=== PATIENT | male | born 1965 ===

== ENCOUNTER 2021-06-08 03:58 | Inpatient (IN) ==
[2021-06-08] MEDS ORDERED: ALBUTEROL 2.5 MG/3 ML NEB RESP TX PRN (04:06)
[2021-06-08] MEDS ORDERED: ONDANSETRON 4 MG/2 ML VIAL IV PRN (04:06)
[2021-06-08] MEDS ORDERED: DEXTROSE 5% NACL 0.45% 1,000 ML IV SCH (06:00)
[2021-06-08] MEDS ORDERED: LABETALOL 20 MG/4 ML SYRINGE IV ONE (07:40)
[2021-06-08] MEDS: PANTOPRAZOLE 40 MG VIAL IV SCH (08:07)
[2021-06-08] MEDS ORDERED: GLUCAGON 1 MG VIAL IM PRN (08:15)
[2021-06-08] MEDS ORDERED: DEXTROSE 10% 250 ML BAG IV PRN (08:18)
[2021-06-08 08:42] LABS: Alanine Aminotransferase 16 U/L (16-61); Albumin 3.4 G/DL (3.4-5.0); Alkaline Phosphatase 111 U/L (45-117); Aspartate Amino Transferase 27 U/L (0-37); Bilirubin,Total < 0.39 MG/DL (0.20-1.00); Blood Urea Nitrogen 37 MG/DL (7-18); Calcium 8.4 MG/DL (8.5-10.1); Carbon Dioxide 23 MMOL/L (21-32); Chloride 106 MMOL/L (98-107); Estimated Glom Filtration Rate 28 ML/MIN; Glucose 295 MG/DL (74-106); Osmolality,Calculated 292.8 MOS/KG (273-304); Potassium 4.2 MMOL/L (3.5-5.1); Sodium 137 MMOL/L (136-145); Total Protein 7.1 G/DL (6.4-8.2)
[2021-06-08 08:48] LABS: Arterial Base Excess iSTAT -3 MMOL/L (-2.5-2.5); Arterial Bicarbonate iSTAT 25.8 MMOL/L (20-26); Arterial O2 Saturation iSTAT 100 % (95-100); Arterial PCO2 iSTAT 68 MM HG (35-48); Arterial PO2 iSTAT 329 MM HG (80-95); Arterial Total CO2 iSTAT 28 MMO/L (23-27); Arterial pH iSTAT 7.184 (7.35-7.45)
[2021-06-08 08:58] LABS: PT Patient Result 11.3 SECS (10.5-12.0)
[2021-06-08 09:16] LABS: Basophils # 0.1 10*3/uL (0.0-0.2); Basophils % 0.5 % (0.0-0.8); Eosinophils # 0.1 10*3/uL (0.0-0.87); Eosinophils % 0.3 % (0.00-10.9); Hematocrit 31.4 VOL% (42.0-52.0); Hemoglobin 8.7 GM/DL (14.0-18.0); Immature Granulocytes % 1.4 %; Immature Granulocytes Absolute 0.37 #; Lymphocytes % 7.7 % (21.2-54.2); Mean Corpuscular HGB Conc 27.7 GM/DL (32-36); Mean Corpuscular Volume 75.8 FL (87-102); Mean Platelet Volume 10.7 FL (9.6-12.0); Monocytes # 2.2 10*3/uL (0.11-0.8); Monocytes % 8.5 % (1.7-12.7); NRBC # 0.03 10*3/uL; Neutrophils % 81.6 % (38.7-73.9); Platelet Count 316 T/CUMM (130-400); Red Blood Count 4.14 MC/CUMM (3.8-5.5); Red Cell Distribution Width 17.9 % (9.3-17.3); White Blood Count 25.8 T/CUMM (4-12)
[2021-06-08] MEDS ORDERED: HEPARIN DRIP 25,000 UNITS/500 ML PREMIX IV SCH (09:30)
[2021-06-08] MEDS ORDERED: FUROSEMIDE 40 MG/4 ML VIAL IV ONE (09:31)
[2021-06-08 09:48] LABS: Glucose,Urine (UA) Negative (Negative); Ketones,Urine Negative (Negative); Mucus,Urine Occasional /LPF (Occasional); Protein,Urine >=300 mg/dL (Negative); RBC,Urine 7 /HPF (0-4); Squamous Epithelial Cell,Urine Occasional /HPF (0-10); Urine Appearance Clear (Clear); Urine Color Yellow (Yellow); Urine Specific Gravity >= 1.030 (1.001-1.035); Urine pH 5.5 (4.5-8.0)
[2021-06-08 09:49] LABS: Bilirubin,Urine Negative (Negative); Blood, Urine Moderate mg/dL (Negative); Nitrite,Urine Negative (Negative); Urine Urobilinogen 0.2 eU/dL (<2.0)
[2021-06-08 10:21] LABS: Barbiturates Screen,Urine Negative (Negative); Benzodiazepines Screen,Urine Positive (Negative); Cannabinoid Screen,Urine Negative (Negative); Opiate Screen,Urine Negative (Negative); Phencyclidine Screen,Urine Negative (Negative)
[2021-06-08] MEDS: methylPREDNISolone SOD SUC 40 MG/1 ML VIAL IV SCH ×2 (10:23→16:28)
[2021-06-08] MEDS: cefTRIAXone 1,000 MG in SODIUM CHLORIDE 0.9% 100 ML IV SCH (10:23)
[2021-06-08 10:33] LABS: Arterial Base Excess iSTAT -2 MMOL/L (-2.5-2.5); Arterial Bicarbonate iSTAT 24.7 MMOL/L (20-26); Arterial O2 Saturation iSTAT 99 % (95-100); Arterial PCO2 iSTAT 49 MM HG (35-48); Arterial PO2 iSTAT 158 MM HG (80-95); Arterial Total CO2 iSTAT 26 MMO/L (23-27); Arterial pH iSTAT 7.311 (7.35-7.45)
[2021-06-08] MEDS: AZITHROMYCIN INJ 500 MG in SODIUM CHLORIDE 0.9% 250 ML IV SCH (11:08)
[2021-06-08] MEDS ORDERED: INSULIN LISPRO 100 UNIT/ML SUBCUT SCH (12:00)
[2021-06-08] MEDS ORDERED: ASPIRIN EC 81 MG TABLET PO SCH (12:53)
[2021-06-08] MEDS ORDERED: METOPROLOL SUCCINATE XL 25 MG TABLET PO SCH (13:00)
[2021-06-08] MEDS: ALBUTEROL/IPRATROPIUM 3 ML NEB RESP TX SCH ×2 (13:05→19:50)
[2021-06-08 13:06] LABS: Arterial Base Excess iSTAT -1 MMOL/L (-2.5-2.5); Arterial Bicarbonate iSTAT 24.5 MMOL/L (20-26); Arterial O2 Saturation iSTAT 99 % (95-100); Arterial PCO2 iSTAT 43 MM HG (35-48); Arterial PO2 iSTAT 122 MM HG (80-95); Arterial Total CO2 iSTAT 26 MMO/L (23-27); Arterial pH iSTAT 7.362 (7.35-7.45)
[2021-06-08] MEDS: METOPROLOL TARTRATE 25 MG TABLET PO SCH ×2 (14:13→20:36)
[2021-06-08] MEDS: HEPARIN 5,000 UNIT/1 ML VIAL SUBCUT SCH ×2 (14:13→22:37)
[2021-06-08] MEDS ORDERED: PNEUMOCOCCAL VACCINE (23 VALENT) 0.5 ML VIAL IM ONE (17:28)
[2021-06-08] MEDS: hydrALAZINE 20 MG/1 ML VIAL IV PRN ×2 (18:29→23:40)
[2021-06-09] MEDS: methylPREDNISolone SOD SUC 40 MG/1 ML VIAL IV SCH ×4 (00:32→23:45)
[2021-06-09] MEDS: ALBUTEROL/IPRATROPIUM 3 ML NEB RESP TX SCH ×4 (00:40→20:00)
[2021-06-09 03:39] LABS: ABG Base Excess -1.6 MMOL/L (-2.5-2.5); ABG HCO3 23.1 MMOL/L (20-26); ABG Oxygen Saturation 97.9 % (95-100); ABG PCO2 41.4 MM HG (35-48); ABG PH 7.364 (7.35-7.45); ABG TCO2 22.2 MMOL/L (23-27)
[2021-06-09] MEDS: HEPARIN 5,000 UNIT/1 ML VIAL SUBCUT SCH ×3 (05:19→21:47)
[2021-06-09] MEDS: MIDAZOLAM 100 MG in SODIUM CHLORIDE 0.9% 80 ML IV PRN (05:25)
[2021-06-09 05:55] LABS: Basophils % 0.2 % (0.0-0.8); Hematocrit 27.9 VOL% (42.0-52.0); Immature Granulocytes % 0.6 %; Immature Granulocytes Absolute 0.08 #; Lymphocytes # 1.5 10*3/uL (1.4-4.0); Lymphocytes % 11.5 % (21.2-54.2); Mean Corpuscular HGB Conc 28.7 GM/DL (32-36); Mean Corpuscular Volume 72.3 FL (87-102); Mean Platelet Volume 9.6 FL (9.6-12.0); Monocytes # 1.2 10*3/uL (0.11-0.8); Monocytes % 9.1 % (1.7-12.7); Neutrophils % 78.6 % (38.7-73.9); Platelet Count 239 T/CUMM (130-400); Red Blood Count 3.86 MC/CUMM (3.8-5.5); White Blood Count 12.9 T/CUMM (4-12)
[2021-06-09 06:18] LABS: Hypochromia 1+; Microcytosis 1+
[2021-06-09 06:19] LABS: Anisocytosis 1+; Ovalocytes Slight; Platelet Estimate Normal; Polychromasia Slight
[2021-06-09 06:20] LABS: Alanine Aminotransferase 18 U/L (16-61); Albumin 3.5 G/DL (3.4-5.0); Alkaline Phosphatase 95 U/L (45-117); Aspartate Amino Transferase 31 U/L (0-37); Bilirubin,Total < 0.39 MG/DL (0.20-1.00); Blood Urea Nitrogen 46 MG/DL (7-18); Calcium 9.1 MG/DL (8.5-10.1); Carbon Dioxide 22 MMOL/L (21-32); Chloride 107 MMOL/L (98-107); Estimated Glom Filtration Rate 28 ML/MIN; Glucose 140 MG/DL (74-106); Osmolality,Calculated 288.7 MOS/KG (273-304); Potassium 4.3 MMOL/L (3.5-5.1); Sodium 138 MMOL/L (136-145); Total Protein 7.1 G/DL (6.4-8.2)
[2021-06-09 06:21] LABS: Risk Ratio 6.59
[2021-06-09 06:22] LABS: Ferritin 15.3 ng/mL (26-388)
[2021-06-09] MEDS: PANTOPRAZOLE 40 MG VIAL IV SCH (09:10)
[2021-06-09] MEDS: ASPIRIN CHEW 81 MG TABLET PO SCH (09:14)
[2021-06-09] MEDS: METOPROLOL TARTRATE 25 MG TABLET PO SCH ×2 (09:14→21:47)
[2021-06-09] MEDS ORDERED: FUROSEMIDE 40 MG/4 ML VIAL IV ONE (10:55)
[2021-06-09] MEDS: cefTRIAXone 1,000 MG in SODIUM CHLORIDE 0.9% 100 ML IV SCH (11:25)
[2021-06-09] MEDS: FERROUS SULFATE 325 MG TABLET PO SCH ×2 (11:52→21:46)
[2021-06-09] MEDS: AZITHROMYCIN INJ 500 MG in SODIUM CHLORIDE 0.9% 250 ML IV SCH (11:52)
[2021-06-10] MEDS: ALBUTEROL/IPRATROPIUM 3 ML NEB RESP TX SCH ×4 (01:05→19:02)
[2021-06-10 04:58] LABS: ABG Base Excess 0.3 MMOL/L (-2.5-2.5); ABG HCO3 24.7 MMOL/L (20-26); ABG Oxygen Saturation 98.4 % (95-100); ABG PCO2 44.3 MM HG (35-48); ABG TCO2 24.2 MMOL/L (23-27)
[2021-06-10] MEDS: HEPARIN 5,000 UNIT/1 ML VIAL SUBCUT SCH ×3 (05:34→21:32)
[2021-06-10] MEDS: MIDAZOLAM 100 MG in SODIUM CHLORIDE 0.9% 80 ML IV PRN (06:34)
[2021-06-10 06:57] LABS: Hematocrit 24.9 VOL% (42.0-52.0); Hemoglobin 7.2 GM/DL (14.0-18.0); Immature Granulocytes % 0.6 %; Immature Granulocytes Absolute 0.06 #; Lymphocytes # 0.7 10*3/uL (1.4-4.0); Lymphocytes % 6.3 % (21.2-54.2); Mean Corpuscular HGB Conc 28.9 GM/DL (32-36); Mean Corpuscular Volume 72.8 FL (87-102); Mean Platelet Volume 10.7 FL (9.6-12.0); Monocytes # 0.4 10*3/uL (0.11-0.8); Monocytes % 3.2 % (1.7-12.7); NRBC # 0.02 10*3/uL; Neutrophils % 89.9 % (38.7-73.9); Platelet Count 210 T/CUMM (130-400); Red Blood Count 3.42 MC/CUMM (3.8-5.5); White Blood Count 10.9 T/CUMM (4-12)
[2021-06-10 07:10] LABS: Hypochromia 1+; Microcytosis 1+; Ovalocytes Slight
[2021-06-10 07:11] LABS: Tear Drop Cells Slight
[2021-06-10 07:19] LABS: Calcium 9.6 MG/DL (8.5-10.1); Osmolality,Calculated 291.8 MOS/KG (273-304); Potassium 4.3 MMOL/L (3.5-5.1)
[2021-06-10] MEDS: FERROUS SULFATE 325 MG TABLET PO SCH ×2 (09:08→21:31)
[2021-06-10] MEDS: PANTOPRAZOLE 40 MG VIAL IV SCH (09:08)
[2021-06-10] MEDS: METOPROLOL TARTRATE 25 MG TABLET PO SCH ×2 (09:08→20:11)
[2021-06-10] MEDS: cefTRIAXone 1,000 MG in SODIUM CHLORIDE 0.9% 100 ML IV SCH (09:08)
[2021-06-10] MEDS: methylPREDNISolone SOD SUC 40 MG/1 ML VIAL IV SCH ×2 (09:08→16:28)
[2021-06-10] MEDS: ASPIRIN CHEW 81 MG TABLET PO SCH (09:08)
[2021-06-10] MEDS: AZITHROMYCIN INJ 500 MG in SODIUM CHLORIDE 0.9% 250 ML IV SCH (11:08)
[2021-06-10] MEDS: hydrALAZINE 20 MG/1 ML VIAL IV PRN ×2 (13:51→19:38)
[2021-06-10] MEDS: ACETAMINOPHEN 325 MG TABLET PO PRN (20:11)
[2021-06-11] MEDS: methylPREDNISolone SOD SUC 40 MG/1 ML VIAL IV SCH ×3 (01:04→16:03)
[2021-06-11] MEDS: ALBUTEROL/IPRATROPIUM 3 ML NEB RESP TX SCH ×4 (01:50→19:00)
[2021-06-11 02:56] LABS: ABG HCO3 25.3 MMOL/L (20-26); ABG Oxygen Saturation 98.4 % (95-100); ABG PCO2 43.5 MM HG (35-48); ABG PH 7.387 (7.35-7.45); ABG TCO2 24.6 MMOL/L (23-27)
[2021-06-11] MEDS: HEPARIN 5,000 UNIT/1 ML VIAL SUBCUT SCH ×3 (05:19→21:24)
[2021-06-11 05:40] LABS: Basophils % 0.1 % (0.0-0.8); Hematocrit 24.6 VOL% (42.0-52.0); Hemoglobin 7.1 GM/DL (14.0-18.0); Immature Granulocytes Absolute 0.18 #; Lymphocytes # 0.6 10*3/uL (1.4-4.0); Lymphocytes % 3.5 % (21.2-54.2); Mean Corpuscular HGB Conc 28.9 GM/DL (32-36); Mean Corpuscular Volume 73.7 FL (87-102); Mean Platelet Volume 10.6 FL (9.6-12.0); Monocytes # 0.5 10*3/uL (0.11-0.8); Monocytes % 2.6 % (1.7-12.7); NRBC # 0.03 10*3/uL; Neutrophils % 92.8 % (38.7-73.9); Platelet Count 238 T/CUMM (130-400); Red Blood Count 3.34 MC/CUMM (3.8-5.5); Red Cell Distribution Width 18.2 % (9.3-17.3); White Blood Count 17.6 T/CUMM (4-12)
[2021-06-11 06:00] LABS: Calcium 9.5 MG/DL (8.5-10.1); Osmolality,Calculated 300.5 MOS/KG (273-304); Potassium 4.7 MMOL/L (3.5-5.1)
[2021-06-11 06:03] LABS: Anisocytosis 1+; Hypochromia 1+; Lymphocytes 5 % (20-55); Microcytosis 1+; Polychromasia Slight; Target Cells Few; Total Cells Counted 100
[2021-06-11 06:04] LABS: Ovalocytes Slight; Platelet Estimate Normal
[2021-06-11] MEDS ORDERED: FUROSEMIDE 100 MG/10 ML VIAL IV ONE (08:07)
[2021-06-11] MEDS: FERROUS SULFATE 325 MG TABLET PO SCH ×2 (08:10→21:24)
[2021-06-11] MEDS: ASPIRIN CHEW 81 MG TABLET PO SCH (08:10)
[2021-06-11] MEDS: amLODIPine 5 MG TABLET PO SCH (08:11)
[2021-06-11] MEDS: PANTOPRAZOLE 40 MG VIAL IV SCH (08:12)
[2021-06-11] MEDS: DEXMEDETOMIDINE 200 MCG in SODIUM CHLORIDE 0.9% 48 ML IV PRN ×3 (08:30→19:25)
[2021-06-11] MEDS: METOPROLOL TARTRATE 50 MG TABLET PO SCH ×2 (09:41→21:24)
[2021-06-11] MEDS: cefTRIAXone 1,000 MG in SODIUM CHLORIDE 0.9% 100 ML IV SCH (09:47)
[2021-06-11] MEDS: AZITHROMYCIN INJ 500 MG in SODIUM CHLORIDE 0.9% 250 ML IV SCH (11:12)
[2021-06-11] MEDS ORDERED: INSULIN REGULAR 100 UNIT/ML SUBCUT SCH (12:00)
[2021-06-11 22:55] VITALS: BP 158/67
[2021-06-12] MEDS: methylPREDNISolone SOD SUC 40 MG/1 ML VIAL IV SCH ×3 (00:10→21:28)
[2021-06-12] MEDS: ALBUTEROL/IPRATROPIUM 3 ML NEB RESP TX SCH ×4 (01:00→19:37)
[2021-06-12] MEDS: DEXMEDETOMIDINE 200 MCG in SODIUM CHLORIDE 0.9% 48 ML IV PRN ×4 (03:23→20:08)
[2021-06-12 04:31] LABS: ABG Base Excess 3.9 MMOL/L (-2.5-2.5); ABG HCO3 27.9 MMOL/L (20-26); ABG Oxygen Saturation 98.5 % (95-100); ABG PCO2 38.6 MM HG (35-48); ABG PH 7.465 (7.35-7.45); ABG TCO2 25.4 MMOL/L (23-27)
[2021-06-12 05:40] LABS: Basophils % 0.2 % (0.0-0.8); Hematocrit 30.5 VOL% (42.0-52.0); Hemoglobin 9.3 GM/DL (14.0-18.0); Immature Granulocytes % 0.9 %; Immature Granulocytes Absolute 0.16 #; Lymphocytes # 0.8 10*3/uL (1.4-4.0); Lymphocytes % 4.4 % (21.2-54.2); Mean Corpuscular HGB Conc 30.5 GM/DL (32-36); Mean Corpuscular Volume 74.9 FL (87-102); Mean Platelet Volume 10.3 FL (9.6-12.0); Monocytes # 1.1 10*3/uL (0.11-0.8); Monocytes % 5.7 % (1.7-12.7); NRBC # 0.02 10*3/uL; Neutrophils % 88.8 % (38.7-73.9); Platelet Count 231 T/CUMM (130-400); Red Blood Count 4.07 MC/CUMM (3.8-5.5); Red Cell Distribution Width 19.6 % (9.3-17.3); White Blood Count 18.7 T/CUMM (4-12)
[2021-06-12 05:54] LABS: Calcium 9.6 MG/DL (8.5-10.1); Osmolality,Calculated 309.4 MOS/KG (273-304); Potassium 5.1 MMOL/L (3.5-5.1)
[2021-06-12] MEDS: HEPARIN 5,000 UNIT/1 ML VIAL SUBCUT SCH ×3 (06:04→21:29)
[2021-06-12 06:22] LABS: Hypochromia 1+; Lymphocytes 6 % (20-55); Platelet Estimate Normal; Total Cells Counted 100
[2021-06-12] MEDS: PANTOPRAZOLE 40 MG VIAL IV SCH (08:53)
[2021-06-12] MEDS: METOPROLOL TARTRATE 50 MG TABLET PO SCH ×2 (08:59→21:28)
[2021-06-12] MEDS: FERROUS SULFATE 325 MG TABLET PO SCH ×2 (08:59→21:28)
[2021-06-12] MEDS: amLODIPine 5 MG TABLET PO SCH (08:59)
[2021-06-12] MEDS: cefTRIAXone 1,000 MG in SODIUM CHLORIDE 0.9% 100 ML IV SCH (09:05)
[2021-06-12] MEDS ORDERED: methylPREDNISolone SOD SUC 40 MG/1 ML VIAL IV SCH (09:30)
[2021-06-12] MEDS: FUROSEMIDE 40 MG/4 ML VIAL IV SCH ×2 (09:37→15:39)
[2021-06-12] MEDS: AZITHROMYCIN INJ 500 MG in SODIUM CHLORIDE 0.9% 250 ML IV SCH (10:01)
[2021-06-12] MEDS ORDERED: QUEtiapine 25 MG TABLET PO ONE (10:35)
[2021-06-12] MEDS ORDERED: MORPHINE 2 MG/1 ML SYRINGE IV PRN (17:00)
[2021-06-12] MEDS: QUEtiapine 25 MG TABLET PO SCH (21:28)
[2021-06-12] MEDS: GABAPENTIN 100 MG CAPSULE PO SCH (21:28)
[2021-06-12] MEDS: DOCUSATE SODIUM 100 MG/10 ML UDCUP PO SCH (21:28)
[2021-06-13] MEDS: ALBUTEROL/IPRATROPIUM 3 ML NEB RESP TX SCH ×4 (00:18→19:32)
[2021-06-13] MEDS: DEXMEDETOMIDINE 200 MCG in SODIUM CHLORIDE 0.9% 48 ML IV PRN (00:22)
[2021-06-13 04:33] LABS: Arterial Base Excess iSTAT 8 MMOL/L (-2.5-2.5); Arterial Bicarbonate iSTAT 33.4 MMOL/L (20-26); Arterial O2 Saturation iSTAT 99 % (95-100); Arterial PCO2 iSTAT 47 MM HG (35-48); Arterial PO2 iSTAT 156 MM HG (80-95); Arterial Total CO2 iSTAT 35 MMO/L (23-27); Arterial pH iSTAT 7.462 (7.35-7.45)
[2021-06-13 04:47] LABS: Basophils % 0.1 % (0.0-0.8); Hematocrit 33.5 VOL% (42.0-52.0); Hemoglobin 9.9 GM/DL (14.0-18.0); Immature Granulocytes % 0.8 %; Immature Granulocytes Absolute 0.12 #; Lymphocytes # 1.1 10*3/uL (1.4-4.0); Mean Corpuscular HGB Conc 29.6 GM/DL (32-36); Mean Platelet Volume 10.9 FL (9.6-12.0); Monocytes # 1.1 10*3/uL (0.11-0.8); NRBC # 0.02 10*3/uL; Neutrophils % 83.1 % (38.7-73.9); Platelet Count 270 T/CUMM (130-400); Red Blood Count 4.41 MC/CUMM (3.8-5.5); Red Cell Distribution Width 20.1 % (9.3-17.3); White Blood Count 14.2 T/CUMM (4-12)
[2021-06-13 05:12] LABS: Calcium 10.1 MG/DL (8.5-10.1); Osmolality,Calculated 316.4 MOS/KG (273-304); Potassium 5.6 MMOL/L (3.5-5.1)
[2021-06-13] MEDS: HEPARIN 5,000 UNIT/1 ML VIAL SUBCUT SCH ×3 (06:18→21:00)
[2021-06-13] MEDS: cefTRIAXone 1,000 MG in SODIUM CHLORIDE 0.9% 100 ML IV SCH (09:49)
[2021-06-13] MEDS: DOCUSATE SODIUM 100 MG/10 ML UDCUP PO SCH ×2 (09:54→20:14)
[2021-06-13] MEDS: PANTOPRAZOLE 40 MG VIAL IV SCH (09:54)
[2021-06-13] MEDS: ASPIRIN CHEW 81 MG TABLET PO SCH (09:56)
[2021-06-13] MEDS: amLODIPine 5 MG TABLET PO SCH (09:57)
[2021-06-13] MEDS: FERROUS SULFATE 325 MG TABLET PO SCH ×2 (09:57→20:13)
[2021-06-13] MEDS: GABAPENTIN 100 MG CAPSULE PO SCH ×3 (09:58→20:13)
[2021-06-13] MEDS: METOPROLOL TARTRATE 50 MG TABLET PO SCH ×2 (09:58→20:58)
[2021-06-13] MEDS: methylPREDNISolone SOD SUC 40 MG/1 ML VIAL IV SCH ×2 (09:59→20:13)
[2021-06-13] MEDS: FUROSEMIDE 40 MG/4 ML VIAL IV SCH (11:09)
[2021-06-13] MEDS: hydrALAZINE 20 MG/1 ML VIAL IV PRN ×2 (12:28→19:32)
[2021-06-13] MEDS ORDERED: DILTIAZEM 60 MG TABLET PO PRN (16:00)
[2021-06-13] MEDS: ACETAMINOPHEN 325 MG TABLET PO PRN ×2 (16:34→22:20)
[2021-06-13] MEDS: QUEtiapine 25 MG TABLET PO SCH (20:12)
[2021-06-13] MEDS ORDERED: hydrALAZINE 20 MG/1 ML VIAL IV ONE (22:03)
[2021-06-14] MEDS: hydrALAZINE 20 MG/1 ML VIAL IV PRN ×2 (01:43→09:21)
[2021-06-14 03:31] LABS: Basophils % 0.3 % (0.0-0.8); Eosinophils % 0.1 % (0.00-10.9); Hematocrit 34.8 VOL% (42.0-52.0); Hemoglobin 10.5 GM/DL (14.0-18.0); Immature Granulocytes % 2.1 %; Immature Granulocytes Absolute 0.33 #; Lymphocytes # 1.3 10*3/uL (1.4-4.0); Lymphocytes % 8.4 % (21.2-54.2); Mean Corpuscular HGB Conc 30.2 GM/DL (32-36); Mean Corpuscular Volume 75.5 FL (87-102); Mean Platelet Volume 10.6 FL (9.6-12.0); Monocytes # 0.7 10*3/uL (0.11-0.8); Monocytes % 4.5 % (1.7-12.7); Neutrophils % 84.6 % (38.7-73.9); Platelet Count 279 T/CUMM (130-400); Red Blood Count 4.61 MC/CUMM (3.8-5.5); Red Cell Distribution Width 20.5 % (9.3-17.3); White Blood Count 15.5 T/CUMM (4-12)
[2021-06-14 03:36] LABS: Calcium 9.2 MG/DL (8.5-10.1); Osmolality,Calculated 297.2 MOS/KG (273-304); Potassium 5.2 MMOL/L (3.5-5.1)
[2021-06-14] MEDS: ALBUTEROL/IPRATROPIUM 3 ML NEB RESP TX SCH ×2 (07:33)
[2021-06-14] MEDS ORDERED: ALBUTEROL/IPRATROPIUM 3 ML NEB RESP TX PRN (07:42)
[2021-06-14] MEDS: DOCUSATE SODIUM 100 MG/10 ML UDCUP PO SCH ×2 (08:03→20:13)
[2021-06-14] MEDS: amLODIPine 5 MG TABLET PO SCH (08:04)
[2021-06-14] MEDS: PANTOPRAZOLE 40 MG VIAL IV SCH (08:04)
[2021-06-14] MEDS: METOPROLOL TARTRATE 50 MG TABLET PO SCH ×2 (08:04→20:12)
[2021-06-14] MEDS: FERROUS SULFATE 325 MG TABLET PO SCH ×2 (08:04→20:12)
[2021-06-14] MEDS: GABAPENTIN 100 MG CAPSULE PO SCH ×3 (08:04→20:12)
[2021-06-14] MEDS: ASPIRIN CHEW 81 MG TABLET PO SCH (08:04)
[2021-06-14] MEDS: methylPREDNISolone SOD SUC 40 MG/1 ML VIAL IV SCH ×3 (08:05→20:12)
[2021-06-14] MEDS: PANTOPRAZOLE 40 MG TABLET PO SCH (08:24)
[2021-06-14] MEDS: HEPARIN 5,000 UNIT/1 ML VIAL SUBCUT SCH ×3 (08:24→22:51)
[2021-06-14] MEDS: cefTRIAXone 1,000 MG in SODIUM CHLORIDE 0.9% 100 ML IV SCH (09:21)
[2021-06-14] MEDS: BUDESONIDE/FORMOTEROL 160-4.5 INHALER 6 GM INH SCH ×2 (09:21→20:13)
[2021-06-15] MEDS: hydrALAZINE 20 MG/1 ML VIAL IV PRN ×2 (00:53→12:02)
[2021-06-15 03:40] LABS: Basophils % 0.1 % (0.0-0.8); Eosinophils % 0.1 % (0.00-10.9); Hematocrit 37.7 VOL% (42.0-52.0); Hemoglobin 11.4 GM/DL (14.0-18.0); Immature Granulocytes % 1.6 %; Immature Granulocytes Absolute 0.23 #; Lymphocytes # 1.5 10*3/uL (1.4-4.0); Lymphocytes % 10.5 % (21.2-54.2); Mean Corpuscular HGB Conc 30.2 GM/DL (32-36); Mean Platelet Volume 10.6 FL (9.6-12.0); NRBC # 0.02 10*3/uL; Neutrophils % 80.7 % (38.7-73.9); Platelet Count 347 T/CUMM (130-400); Red Blood Count 5.03 MC/CUMM (3.8-5.5); Red Cell Distribution Width 21.2 % (9.3-17.3); White Blood Count 14.6 T/CUMM (4-12)
[2021-06-15 04:01] LABS: Calcium 9.4 MG/DL (8.5-10.1); Osmolality,Calculated 292.4 MOS/KG (273-304); Potassium 4.7 MMOL/L (3.5-5.1)
[2021-06-15] MEDS ORDERED: hydrALAZINE 20 MG/1 ML VIAL IV ONE (04:09)
[2021-06-15] MEDS: ASPIRIN CHEW 81 MG TABLET PO SCH (08:01)
[2021-06-15] MEDS: FERROUS SULFATE 325 MG TABLET PO SCH (08:01)
[2021-06-15] MEDS: methylPREDNISolone SOD SUC 40 MG/1 ML VIAL IV SCH (08:01)
[2021-06-15] MEDS: PANTOPRAZOLE 40 MG TABLET PO SCH (08:01)
[2021-06-15] MEDS: GABAPENTIN 100 MG CAPSULE PO SCH (08:01)
[2021-06-15] MEDS: amLODIPine 5 MG TABLET PO SCH (08:01)
[2021-06-15] MEDS: METOPROLOL TARTRATE 50 MG TABLET PO SCH (08:02)
[2021-06-15] MEDS: BUDESONIDE/FORMOTEROL 160-4.5 INHALER 6 GM INH SCH (08:06)
[2021-06-15] MEDS: DOCUSATE SODIUM 100 MG/10 ML UDCUP PO SCH (08:06)
[2021-06-15] MEDS: HEPARIN 5,000 UNIT/1 ML VIAL SUBCUT SCH (08:06)
[2021-06-15] MEDS ORDERED: predniSONE 10 MG TABLET PO SCH (09:30)
[2021-06-15] MEDS: ACETAMINOPHEN 325 MG TABLET PO PRN (11:12)
== END 2021-06-15 15:15 | disposition home or self-care (01) | DRG 207 ==
LOC: N.ICU 04:04 → SUATTDRO 04:04 → N.ICU 06-12 21:01
PROVIDERS: ADMIT Internal Medicine; ATTEND Internal Medicine